=== PATIENT | female | born 1970 | race African-American/Black ===

== ENCOUNTER 2017-07-19 17:14 | Emergency (ER) | payer MEDICARE, MEDICAID ==
[2017-07-19] MEDS ORDERED: predniSONE 20 MG TAB ONE (17:36)
[2017-07-19] MEDS ORDERED: AMOXicillin 250 MG CAP ONE (17:36)
[2017-07-19] MEDS ORDERED: hydrOXYzine 25 MG TAB ONE (17:36)
== END 2017-07-19 17:41 | disposition home or self-care (01) ==
LOC: BURERS 17:14
DX: L30.8 Other specified dermatitis (principal); L03.221 Cellulitis of neck; L03.114 Cellulitis of left upper limb; F31.9 Bipolar disorder, unspecified; F17.290 Nicotine dependence, other tobacco product, uncomplicated
CPT/HCPCS: 99282; J7506

== ENCOUNTER 2017-07-30 12:58 | Emergency (ER) | payer MEDICARE, MEDICAID | END 2017-07-30 13:31 | disposition home or self-care (01) | LOC: BURERS 12:58 | DX: L03.114 Cellulitis of left upper limb (principal); L03.113 Cellulitis of right upper limb; L03.221 Cellulitis of neck; L03.313 Cellulitis of chest wall; L30.9 Dermatitis, unspecified; F31.9 Bipolar disorder, unspecified; F17.210 Nicotine dependence, cigarettes, uncomplicated | CPT/HCPCS: 99282 ==

== ENCOUNTER 2018-01-22 09:37 | Emergency (ER) | payer MEDICARE, MEDICAID | END 2018-01-22 09:55 | disposition home or self-care (01) | LOC: BURERS 09:37 | DX: L25.9 Unspecified contact dermatitis, unspecified cause (principal) | CPT/HCPCS: 99282 ==

== ENCOUNTER 2018-01-24 10:12 | Emergency (ER) | payer MEDICARE, MEDICAID ==
[2018-01-24] MEDS ORDERED: methylPREDNISolone Acetate 40 mg/ml Vial ONE (10:39)
== END 2018-01-24 11:12 | disposition home or self-care (01) ==
LOC: BURERS 10:12
DX: B86 Scabies (principal); L29.9 Pruritus, unspecified; F31.9 Bipolar disorder, unspecified; Z79.899 Other long term (current) drug therapy
CPT/HCPCS: 36416; 96372; J1030

== ENCOUNTER 2021-10-25 15:16 | Emergency (ER) | payer MEDICARE, OTHER | END 2021-10-25 16:34 | disposition left against medical advice (07) | LOC: BURERS 15:16 | DX: N81.4 Uterovaginal prolapse, unspecified (principal); F17.210 Nicotine dependence, cigarettes, uncomplicated; Z76.0 Encounter for issue of repeat prescription | CPT/HCPCS: 99281 ==